=== PATIENT | female | born 1940 | race African-American/Black ===

== ENCOUNTER → 2018-03-09 | Outpatient (CLI) | payer OTHER ==
[~2018-03-09] VITALS: Ht 160 cm; Wt 135.9 kg
[~2018-03-09] MED LIST: ALLEGRA180 MG PO; ALLOPURINOL 10100 M3 PO; ALPHAGAN P10 ML OP; CLONIDINE0.1; DIOVAN HCT 3201 EAC1 PO; ENABLEX15 MG PO; GELNIQUE30 GM TD; HYDROCODON-ACE1 EAC5 PO; LASIX 40 MG TAB40 M1 PO; LIDODERM 5%1 PATCH TOP; LUMIGAN2.5 M1 OP; MECLIZINE 25 MG25 M1 PO; MOBIC15 MG PO; MUCINEX600 MG PO; NEXIUM40 MG PO; TEGRETOL XR100 MG PO; TOPAMAX50 MG PO; TRUSOPT OCUMETE10 M1 OP; ZOFRAN4 MG PO; ZYRTEC10 MG PO
--- NOTE | ~2018-03-09 | HPC ---
[address] [address] PAIN MANAGEMENT CONSULTATION Name: CHRIS THAKUR Room #: REG [facility].#: [id number] Admission: 03/09/18 Attend Phys: Jay Jay Biswas DO Discharge: Date of : 41 Report #: [id number] THIS REPORT FOR: //name// CC: Jeanine Melchor DATE OF SERVICE: 03/09/2018 REFERRING PHYSICIAN: Jeanine Logan DO CHIEF COMPLAINT: Neck pain. HISTORY OF PRESENT ILLNESS: As you know, the patient is a 77-year-old female who has a total of 2-day neck pain that started without inciting injury or trauma. Apparently, the patient received epidural injections in the past with Dr. Trung Biswas, but has been lost to followup visit. Since her visit of 04/06/2014, she comes to us without any imaging studies. There has been no new injury, no new trauma. She had previous cervical epidural injections with improvement, returning, requesting an epidural injection. The patient described today pain is continuous, constant, momentary. She describes pain as burning and throbbing, places pain score 10/10, daily average at 10/10, worst pain has been is 10/10. The patient states that any activity exacerbates symptoms, nothing appears to improve pain. She has had pain for a total of 48 hours. She has tried no physical therapy. She has done no conservative treatments. PAST MEDICAL HISTORY: 1. Hypertension. 2. Chronic colon problems. 3. Degenerative joint disease. 4. Osteoarthritis. 5. Gout. PAST SURGICAL HISTORY: 1. Eye surgery. 2. Hysterectomy. 3. Appendectomy. SOCIAL HISTORY: The patient denies tobacco, alcohol, IV or illicit drug use. She retired in 1995. She is unaccompanied. She is not receiving workmen's compensation nor is she trying to obtain disability benefits. REVIEW OF SYSTEMS: Positive for fatigue, weakness, headaches, wearing corrective eyewear, blurred vision, sore throat with voice changes, chest pain, [facility] [address] [place] [address] PAIN MANAGEMENT CONSULTATION Name: CHRIS THAKUR Juan Daniel Room #: REG [facility].#: [id number] Admission: 03/09/18 Attend Phys: Jay Jay Biswas DO Discharge: Date of : 41 Report #: [id number] shortness of breath with walking or lying flat, bowel movement changes, nausea, vomiting, constipation, rectal bleeding, abdominal pain, nocturia, incontinence and dribbling to urine, depression, neck pain, cold intolerance. All other review of systems negative per 12-point review of systems other than those listed in history of present illness. Pain impact score 55/70, indicating severe interference of daily activities secondary to pain. ALLERGIES: No reported drug allergies. CURRENT MEDICATIONS: Guaifenesin 600 mg every 12 hours, Zyrtec 10 mg once a day, Alphagan one drop each eye per day, Trusopt 1 drop each eye per day, Lumigan 1 drop each eye per day, Enablex 15 mg once a day, clonidine 0.1 mg twice a day, hydrocodone/acetaminophen 10/325 one tab to two tabs every 6 hours p.r.n. for pain, allopurinol 100 mg twice a day, meloxicam 15 mg once a day, topiramate 50 mg twice a day, ondansetron 4 mg once a day, Nexium 40 mg once a day, Diovan 320/25 once a day. IMAGING: No imaging available. PQRS: The patient has osteoarthritis of the bilateral knees and hips as well as low back. No rheumatoid arthritis. Pain intensity is 10/10. She is a fall risk, but has not had fallen in last 3 months. She is using a wheelchair for ambulation. She is not on blood thinners. She is treated for hypertension. She is on chronic opioids. She has low risk of opioid abuse. FUNCTIONAL ASSESSMENT: 55/70. PHYSICAL EXAMINATION: VITAL SIGNS: Blood pressure 149/103, pulse is 89, respiratory rate 18 and unlabored. The patient is 100% on room air. Height 5 feet 3 inches tall, weight 299 pounds, BMI calculated 53.1. GENERAL: Well-developed, well-nourished, well-hydrated, class 3, morbidly obese 77-year-old female, appears her stated age, pain is rated at 10/10. HEENT: Normocephalic, atraumatic. Pupils equal, round, reactive to light. Extraocular muscles are intact. Speech fluent. LUNGS: Clear; no wheeze, rhonchi or rales. CARDIOVASCULAR: Regular. No appreciable gallop, no rub. Difficult to auscultate heart sounds. ABDOMEN: Bowel sounds are present. Large pannus noted. EXTREMITIES: Show no clubbing, no cyanosis. There is 1-2+ nonpitting lower extremity edema. MUSCULOSKELETAL: Upper extremity strength appears symmetrical 5/5. Deconditioning noted bilaterally. Intact to light touch from C5-T1 dermatomes. Cervical provocation testing is met with increasing pain with rotation, lateral [facility] [address] [place] [address] PAIN MANAGEMENT CONSULTATION Name: CHRIS THAKUR Room #: [facility]#: [id number] Admission: 03/09/18 Attend Phys: Jay Jay Biswas DO Discharge: Date of : 41 Report #: [id number] flexion to the left. Spurling's test mildly positive left. ASSESSMENT: 1. Cervical radiculopathy. 2. Cervical spondylosis with radiculopathy. 3. Severe morbid obesity. 4. Uncontrolled hypertension. 5. Opioid dependency. PLAN: 1. The patient has been referred back to our clinic for 48-hour time-frame of neck pain, left upper extremity symptoms. The patient comes to us today, reporting pain score 10/10. She states she has had no injury, no trauma or any incident that may have led to pain development. She states she was in her normal state of health when the pain intensified. She has been referred back to our clinic to try cervical epidural injection. We have advised the patient of the risks and the benefits of this procedure. These risks include but not necessarily limited to bleeding, bruising, infection, worsening pain, no relief of pain, also risk of temporary or permanent muscle weakness, temporary or permanent nerve damage, possible paralysis and . The patient states she understood and wished to proceed. 2. The patient's blood pressure noted to be today at 149/103, the patient needs to return to her PCP immediately for adjustments in medication. This is not related to her 10/10 pain as her heart rate remains relatively stable, indicating this is not an acute pain-driven pressure issue. Adjustments need to be made in her medication. I will defer to the primary team for these adjustments. 3. The patient can return to our clinic on an as-needed basis. Recommend strongly the patient undergo imaging study in the form of MRI for further evaluation, assuming this injection is necessary again in the future. Further evaluation with imaging study will help us determine whether or not epidural injection should be continued or surgical options should be suggested. Again, we will defer to the primary team for further imaging if cervical epidural injections are continued to be required or pathology remains present. 4. The patient to return to our clinic on an as-needed basis for possible next in the series of epidural injections. PROCEDURE NOTE DESCRIPTION OF PROCEDURE: C7-T1 cervical epidural steroid injection under fluoroscopic guidance. This is the first procedure of the first series that the patient is undergoing. After obtaining written consent, the patient was taken back to the fluoroscopy suite and placed in a prone positon with separate [place] [address] PAIN MANAGEMENT CONSULTATION Name: CHRIS THAKUR Room #: REG [facility]#: [id number] Admission: 03/09/18 Attend Phys: Jay Jay Biswas DO Discharge: Date of : 41 Report #: [id number] forehead to decrease cervical lordosis. The skin overlying the cervical area was prepped and draped in an aseptic fashion. The C7-T1 vertebral interspace was identified by AP fluoroscopy. The skin and subcutaneous tissue overlying the target site of injection was anesthetized using 3 mL of 1% lidocaine. A 20 gauge, 4-1/2 inch Tuohy needle was advanced under fluoroscopic guidance toward the epidural space using a midline approach. The epidural space was identified using a loss of resistance to air technique. After negative aspiration for heme or cerebrospinal fluid, a total of 1 mL of Omnipaque was injected. A cervical epidurogram was confirmed using AP and oblique fluoroscopy. After negative aspiration for heme or cerebrospinal fluid, 5 mL of a solution containing 2 mL of 40 mg per mL, 80 mg of total triamcinolone, 3 mL of lidocaine 1% was injected in increments. Contrast spread was noted from posterior epidural space. The needle was then retracted approximately correction and the needle track was flushed with 1% lidocaine. There were no apparent new sensory deficits in the upper extremities present following the procedure. A sterile bandage was placed over the injection site. The heart rate, pulse oximetry and blood pressure were continuously monitored after the procedure. There were no apparent complications. The patient tolerated the procedure well and was carefully escorted in the recovery room in stable condition. After meeting discharge criteria, the patient was discharged home. By: [id number] Jay Jay Biswas DO /nt
[2018-03-09 08:59] VITALS: BP 149/103
== END | disposition home or self-care (01) ==
LOC: PAIN 07:46
DX: M47.22 Other spondylosis with radiculopathy, cervical region (principal); I10 Essential (primary) hypertension; M10.9 Gout, unspecified; M16.0 Bilateral primary osteoarthritis of hip; M17.0 Bilateral primary osteoarthritis of knee; E66.09 Other obesity due to excess calories; F11.20 Opioid dependence, uncomplicated; Z79.899 Other long term (current) drug therapy; Z90.710 Acquired absence of both cervix and uterus; Z87.19 Personal history of other diseases of the digestive system; Z98.890 Other specified postprocedural states; Z68.43 Body mass index [BMI] 50.0-59.9, adult

== ENCOUNTER → 2019-07-05 | Outpatient (CLI) | payer OTHER ==
[~2019-07-05] MED LIST changes: +ALLOPURINOL 10100 M2 PO; +AVALIDE 300-121 EACH PO; +DICYCLOMINE HCL20 MG PO; +OXYBUTYNIN 5 MG5 M2 PO; +TOPROL XL25 MG PO
[2019-07-05 09:36] VITALS: BP 156/99
--- NOTE | 2019-07-05 09:58 | NUR ---
Pain Clinic Assessment: 1. History of Osteoarthritis: NECK KNEES History of Rheumatoid Arthritis: Not Applicable 2. Height: 5 ft. 3 in. 160.0 cm. Weight: lb. oz. kg. Patient's BMI: 3. Vital Signs: BP: 156/99 Pulse: 92 Resp: 18 Temp: 02 Sat: 97 ECG Mon: 4. Pain Intensity: 7 5. Fall Risk: Dizziness: N Needs help standing or walking: Y Fallen in the last 3 months: N Fall risk comments: 6. Patient on Blood Thinner: None 7. History of Hypertension: Y 8. Opioid Therapy greater than 6 weeks: N Opiate Contract Signed: 9. Risk Assessment Tool Provided: LOW RISK 0/3 10. Functional Assessment Tool: 11. Recreational Drug Use: Never Drug Type: Tobacco Use: Never Smoker Tobacco Type: Amount or Packs/day: How Many Years: Alcohol Use: No Frequency: Quant:
--- NOTE | 2019-07-11 13:05 | HPC ---
[facility] [address] [place] [address] PAIN MANAGEMENT CONSULTATION Name: CHRIS THAKUR Room #: REG [facility]#: [id number] Admission: 07/05/19 Attend Phys: Jay Jay Biswas DO Discharge: Date of : 41 Report #: [id number] THIS REPORT FOR: //name// CC: Jeanine Orourke MD DATE OF SERVICE: 07/05/2019 REFERRING PHYSICIAN: Jeanine Logan MD CHIEF COMPLAINT: Neck pain. HISTORY OF PRESENT ILLNESS: As you know, the patient is a morbidly obese 78-year-old female who returns today in followup visit to undergo next in the series of cervical epidural injections under fluoroscopic guidance. The patient states she received excellent benefit with previous cervical epidural injection reporting 95% improvement in overall pain, lasting for nearly 6 months. Unfortunately, her symptoms have begun to return without inciting injury or trauma. She returns today in followup visit to undergo next in the series of cervical epidural injections to address cervical radicular symptoms. ALLERGIES: No reported drug allergies. CURRENT MEDICATIONS: Valsartan/hydrochlorothiazide, dicyclomine, metoprolol, allopurinol, oxybutynin, guaifenesin, sertraline, Alphagan, Trusopt, Bimatoprost, hydrocodone, allopurinol, meloxicam, topiramate and omeprazole. SOCIAL HISTORY: The patient denies tobacco, alcohol, IV or illicit drug use. She is retired since 1995. Accompanied by a friend who is present in room today. IMAGING: No new imaging available. PQRS: The patient has known arthritic changes of the bilateral knees, bilateral hips and lumbar spine. No rheumatoid arthritis, placing pain intensity today 7/10. She is a fall risk, but has not had a fall in the last 3 months. She is utilizing a wheelchair for mobilization. She is not on blood thinners, but is treated for hypertension. She is on chronic opioids, has a low opioid addiction potential. Pain impact score is 41/70, indicating [id number] interference of daily activities secondary to pain. PHYSICAL EXAMINATION: VITAL SIGNS: Blood pressure 156/99, pulse 92, respiratory rate 18 and unlabored. The patient is 97% on room air, current pain score is 7/10. [address] [address] PAIN MANAGEMENT CONSULTATION Name: CHRIS THAKUR Room #: REG [facility]#: [id number] Admission: 07/05/19 Attend Phys: Jay Jay Biswas DO Discharge: Date of : 41 Report #: [id number] HEENT: Normocephalic, atraumatic. Pupils equal, round, reactive to light. Extraocular muscles are intact. Sclerae nonicteric without injection. NEUROLOGIC: Speech fluent. The patient deemed a fair historian. EXTREMITIES: Show no clubbing, no cyanosis, and no edema. MUSCULOSKELETAL: Upper extremity strength is symmetrical 5/5. Deconditioning noted bilaterally. She is intact to light touch from C5 through T1 dermatomes. Spurling's test is equivocal. Cervical provocation testing is met with increasing axial cervical spine pain, no radiation of symptoms. ASSESSMENT: 1. Symptomatic cervical radiculopathy. 2. Cervical spondylosis with radiculopathy. 3. Severe morbid obesity. 4. Uncontrolled hypertension. 5. Chronic intractable pain. PLAN: 1. The patient returns today in followup visit indicating a pain level of 7/10. She received excellent benefit with previous cervical epidural injection reporting 95% improvement in overall pain lasting for 6 months. Unfortunately, her symptoms have begun to return. She denies injury or trauma, may have led to symptom reoccurrence. She returns to undergo next in the series of cervical epidural injections under fluoroscopic guidance. The patient has been advised risks and benefits of a cervical epidural injection. These risks include but are not necessarily limited to bleeding, bruising, infection, worsening of pain, no relief of pain, temporary or permanent muscle weakness, temporary or permanent nerve damage, possible paralysis, post-dural puncture headache and . The patient states understood and wished to proceed. 2. No medication changes made at today's visit. The patient will continue current medical therapy as prescribed. 3. We will see the patient back in followup visit on an as needed basis for possible next in a series of cervical epidural injections. PROCEDURE NOTE DESCRIPTION OF PROCEDURE: C7-T1 cervical epidural steroid injection under fluoroscopic guidance. This is the second procedure of the first series that the patient is undergoing. After obtaining written consent, the patient was taken back to the fluoroscopy suite and placed in a prone position with separate pillows under chest and forehead to decrease cervical lordosis. The skin overlying the cervical area was prepped and draped in an aseptic fashion. The C7-T1 vertebral interspace [address] [address] PAIN MANAGEMENT CONSULTATION Name: CHRIS THAKUR Room #: [facility]#: [id number] Admission: 07/05/19 Attend Phys: Jay Jay Biswas DO Discharge: Date of : 41 Report #: [id number] was identified by AP fluoroscopy. The skin and subcutaneous tissue overlying the target site of injection was anesthetized using 3 mL of 1% lidocaine. A 20-gauge 3-1/2 inch Tuohy needle was advanced under fluoroscopic guidance toward the epidural space using a midline approach. The epidural space was identified using a loss of resistance to air technique. After negative aspiration for heme or cerebrospinal fluid, a total of 1 mL of Omnipaque was injected. A cervical epidurogram was confirmed using AP and oblique fluoroscopy. After negative aspiration for heme or cerebrospinal fluid, 5 mL of solution containing 2 mL 40 mg per mL, 80 mg total triamcinolone along with 3 mL lidocaine 1% was injected in increments. Contrast spread was noted from posterior epidural space. The needle was then retracted approximately [facility] and the needle track was flushed with 1 mL of 1% lidocaine. There were no apparent new sensory deficits in the upper extremities present following the procedure. A sterile bandage was placed over the injection site. The heart rate, pulse oximetry and blood pressure were continuously monitored after the procedure. There were no apparent complications. The patient tolerated the procedure well and was carefully escorted in the recovery room in stable condition. After meeting discharge criteria, the patient was discharged home. <ELECTRONICALLY SIGNED> By: Jay Jay Biswas DO 07/11/19 1305 [id number] Jay Jay Biswas DO /nt
== END | disposition home or self-care (01) ==
LOC: PAIN 06-13 10:30
DX: M54.2 Cervicalgia (principal); M47.22 Other spondylosis with radiculopathy, cervical region; G89.29 Other chronic pain; I10 Essential (primary) hypertension; E66.01 Morbid (severe) obesity due to excess calories; Z98.890 Other specified postprocedural states; Z79.899 Other long term (current) drug therapy; Z79.891 Long term (current) use of opiate analgesic

== ENCOUNTER → 2019-10-04 | Outpatient (CLI) | payer OTHER ==
[~2019-10-04] VITALS: Ht 160 cm; Wt 130.2 kg
[2019-10-04 13:39] VITALS: BP 125/89
--- NOTE | 2019-10-04 13:58 | NUR ---
Pain Clinic Assessment: 1. History of Osteoarthritis: NECK KNEES History of Rheumatoid Arthritis: Not Applicable 2. Height: 5 ft. 3 in. 160.0 cm. Weight: 287.0 lb. oz. 130.183 kg. Patient's BMI: 50.9 3. Vital Signs: BP: 125/89 Pulse: 88 Resp: 16 Temp: 02 Sat: 95 ECG Mon: 4. Pain Intensity: 9 5. Fall Risk: Dizziness: N Needs help standing or walking: Y Fallen in the last 3 months: N Fall risk comments: 6. Patient on Blood Thinner: None 7. History of Hypertension: Y 8. Opioid Therapy greater than 6 weeks: N Opiate Contract Signed: 9. Risk Assessment Tool Provided: LOW RISK 0/3 10. Functional Assessment Tool: 11. Recreational Drug Use: Never Drug Type: Tobacco Use: Never Smoker Tobacco Type: Amount or Packs/day: How Many Years: Alcohol Use: No Frequency: Quant:
--- NOTE | 2019-10-06 07:46 | HPC ---
[address] [address] PAIN MANAGEMENT CONSULTATION Name: CHRIS THAKUR Room #: REG [facility]#: [id number] Admission: 10/04/19 Attend Phys: Jay Jay Biswas DO Discharge: Date of : 41 Report #: [id number] THIS REPORT FOR: cc: Renzo Dugan MD, Steven A. MD Johnson, James E. DO ~ THIS REPORT FOR: //name// CC: Jay Jay Dugan MD DATE OF SERVICE: 10/04/2019 REFERRING PHYSICIAN: Renzo Dugan MD CHIEF COMPLAINT: Neck pain. HISTORY OF PRESENT ILLNESS: As you know, the patient is a morbidly obese 79-year-old female who returns today in followup visit requesting to undergo next in the series of cervical epidural injections under fluoroscopic guidance. Previous cervical epidural injection gave the patient a relief of symptoms of greater than 70%, lasting for almost 2 months. Unfortunately, her symptoms have begun to return. She denies injury or trauma. She returns today to undergo next in the series of cervical epidural injections to address her chronic cervicalgia and cervical radicular pain. ALLERGIES: No reported drug allergies. CURRENT MEDICATIONS: See chart. SOCIAL HISTORY: The patient denies tobacco, alcohol, IV or illicit drug use. She is retired in 1995, accompanied by a friend present in room today. IMAGING: No new imaging available. PQRS: The patient has known arthritic changes of bilateral knees, bilateral hips and lumbar spine as well as cervical spine. No rheumatoid arthritis. She is placing pain intensity at 9/10. She is a fall risk, but has not had a fall in the last 3 months. She does use ambulatory devices. She is not on blood thinners, but is treated for hypertension. She is not on chronic opioids, but has a low opiate addiction potential based on our testing protocol. Pain impact score 41/70, moderate interference of daily activities secondary to pain. PHYSICAL EXAMINATION: VITAL SIGNS: Blood pressure 125/89, pulse 88, respiratory rate 16, and [facility] [address] [place] [address] PAIN MANAGEMENT CONSULTATION Name: CHRIS THAKUR Room #: [facility]#: [id number] Admission: 10/04/19 Attend Phys: Jay Jay Biswas DO Discharge: Date of : 41 Report #: [id number] unlabored. The patient is 95% on room air. Height 5 feet 3 inches tall, weight 287 pounds, BMI calculated 50.9. GENERAL: Well-developed, well-nourished, well-hydrated, class 3, morbidly obese, 79-year-old female, appearing stated age, pain is rated today at approximately 9/10. HEENT: Normocephalic, atraumatic. Pupils are equal, round, reactive to light. Extraocular muscles are intact. NEUROLOGIC: Speech fluent. The patient deemed a fair historian. EXTREMITIES: Show no clubbing, no cyanosis. There is noted 1+ nonpitting lower extremity edema bilaterally. MUSCULOSKELETAL: Upper extremity strength remains symmetrical again today 5/5. Deconditioning noted bilaterally in the upper extremities. She remains intact to light touch, again from C5-T1 dermatomes. Spurling's test remains equivocal. Cervical provocation testing is met with increased pain with rotation, lateral, flexion, and extension. There is palpatory tenderness over the paraspinal musculature of the cervical spine. No spinous process tenderness. Deep tendon reflexes in the upper extremities are diminished, but symmetrical. ASSESSMENT: 1. Symptomatic cervical radiculopathy. 2. Cervical spondylosis with radiculopathy. 3. Class 3 severe morbid obesity. 4. Chronic intractable pain. PLAN: 1. The patient returns today in followup visit requesting to undergo a cervical epidural injection under fluoroscopic guidance. She reported excellent benefit with previous cervical epidural injection lasting for nearly 2 months with a 70% improvement in her overall symptoms. She returns today, denying any new injury or trauma that may have led to symptom reoccurrence. She has requested and we will perform the next in the series of cervical epidural injections in hopes of building on success of previous intervention. She has been advised risks and benefits of the procedure, states understood, and wished to proceed. 2. No medication changes made at today's visit. The patient will continue current medical therapy as prior prescribed. 3. We will see the patient back in followup visit on an as needed basis for possible next in the series of cervical epidural injections. PROCEDURE NOTE DESCRIPTION OF PROCEDURE: C7-T1 cervical epidural steroid injection under fluoroscopic guidance. This is the third procedure of the first series that the patient is undergoing. After obtaining written consent, the patient was taken back to the fluoroscopy [address] [address] PAIN MANAGEMENT CONSULTATION Name: CHRIS THAKUR Room #: [facility]#: [id number] Admission: 10/04/19 Attend Phys: Jay Jay Biswas DO Discharge: Date of : 41 Report #: [id number] suite and placed prone. The skin overlying the cervical area was prepped and draped in an aseptic fashion. The C7-T1 vertebral interspace was identified by AP fluoroscopy. The skin and subcutaneous tissue overlying the target site of injection was anesthetized using 3 mL of 1% lidocaine. A 20-gauge 4-1/2 inch Tuohy needle was advanced under fluoroscopic guidance toward the epidural space using a midline approach. The epidural space was identified using a loss of resistance to air technique. After negative aspiration for heme or cerebrospinal fluid, a total of 1 mL of Omnipaque was injected. A cervical epidurogram was confirmed using AP and oblique fluoroscopy. After negative aspiration for heme or cerebrospinal fluid, 5 mL of a solution containing 2 mL 40 mg per mL, 80 mg of total triamcinolone along with 3 mL of lidocaine 1% was injected in increments. Contrast spread was noted from posterior epidural space. The needle was then retracted approximately [facility] and the needle track was flushed with 1 mL of 1% lidocaine. There were no apparent new sensory deficits in the upper extremities present following the procedure. A sterile bandage was placed over the injection site. The heart rate, pulse oximetry and blood pressure were continuously monitored after the procedure. There were no apparent complications. The patient tolerated the procedure well and was carefully escorted in the recovery room in stable condition. After meeting discharge criteria, the patient was discharged home. <ELECTRONICALLY SIGNED> By: Jay Jay Biswas DO 10/06/19 0746 [id number] Jay Jay Biswas DO /nt
== END | disposition home or self-care (01) ==
LOC: PAIN 06:52
DX: M47.22 Other spondylosis with radiculopathy, cervical region (principal); G89.29 Other chronic pain; M19.90 Unspecified osteoarthritis, unspecified site; I10 Essential (primary) hypertension; E66.01 Morbid (severe) obesity due to excess calories; Z98.890 Other specified postprocedural states; Z68.43 Body mass index [BMI] 50.0-59.9, adult; Z79.899 Other long term (current) drug therapy

== ENCOUNTER → 2020-01-16 | Outpatient (CLI) | payer OTHER ==
[~2020-01-16] VITALS: Ht 160 cm; Wt 137.2 kg
[2020-01-16 12:22] VITALS: BP 168/78
--- NOTE | 2020-01-16 12:37 | NUR ---
Pain Clinic Assessment: 1. History of Osteoarthritis: NECK KNEES History of Rheumatoid Arthritis: Not Applicable 2. Height: 5 ft. 3 in. 160.0 cm. Weight: 302.4 lb. oz. 137.168 kg. Patient's BMI: 53.6 3. Vital Signs: BP: 168/78 Pulse: 90 Resp: 20 Temp: 02 Sat: 97 ECG Mon: 4. Pain Intensity: 6 5. Fall Risk: Dizziness: N Needs help standing or walking: Y Fallen in the last 3 months: N Fall risk comments: 6. Patient on Blood Thinner: None 7. History of Hypertension: Y 8. Opioid Therapy greater than 6 weeks: N Opiate Contract Signed: 9. Risk Assessment Tool Provided: LOW RISK 0/2 10. Functional Assessment Tool: 11. Recreational Drug Use: Never Drug Type: Tobacco Use: Never Smoker Tobacco Type: Amount or Packs/day: How Many Years: Alcohol Use: No Frequency: Quant:
--- NOTE | 2020-01-17 15:41 | HPC ---
[facility] [place] [address] PAIN MANAGEMENT CONSULTATION Name: CHRIS THAKUR Room #: REG [facility]#: [id number] Admission: 01/16/20 Attend Phys: Jay Jay Biswas DO Discharge: Date of : 42 Report #: [id number] THIS REPORT FOR: cc: Renzo Dugan MD, Steven A. MD Johnson, James E. DO ~ DATE OF SERVICE: 01/16/2020 REFERRING PHYSICIAN: Jeanine Logan DO CHIEF COMPLAINT: Neck pain. HISTORY OF PRESENT ILLNESS: As you know, the patient is a morbidly obese 79-year-old female who returns today in followup visit with continued neck pain. The patient has an unusual stance. She uses a roller walker and bends at approximately 90-degree angle at the lumbar spine. This leads to the necessity of hyperextending her cervical spine to be able to see forward. This is leading to ongoing pain issues. She returns today in followup visit stating no new injury or trauma, but recurrence of her chronic cervicalgia and cervical radicular symptoms. She returns requesting an epidural injection under fluoroscopic guidance. She reports with the previous epidural injection, 75% improvement for 2-1/2 months. ALLERGIES: No reported drug allergies. CURRENT MEDICATIONS: See chart. SOCIAL HISTORY: The patient denies tobacco, alcohol, IV or illicit drug use. She retired in 1995. She is unaccompanied today. IMAGING: No new imaging available. PQRS: The patient has known arthritic changes of the bilateral knees, bilateral hips, lumbar spine and cervical spine. No rheumatoid arthritis is reported. She is a fall risk, but has not had a fall in last 3 months. She is utilizing a roller walker for ambulation. She is not on blood thinners, but is treated for hypertension. She is not on chronic opioids, but does have a low opioid addiction potential. Pain impact score is 22/70 indicating [id number] interference of daily activities secondary to pain. PHYSICAL EXAMINATION: VITAL SIGNS: Blood pressure 168/78, pulse is 90, respiratory rate 20 and unlabored. The patient is 97% on room air. Height 5 feet 3 inches tall, weight 302.4 pounds, BMI calculated at 53.6. GENERAL: Well-developed, well-nourished, well-hydrated, [place] [address] PAIN MANAGEMENT CONSULTATION Name: CHRIS THAKUR Room #: REG [facility]#: [id number] Admission: 01/16/20 Attend Phys: Jay Jay Biswas DO Discharge: Date of : 41 Report #: [id number] 79-year-old female appearing stated age. She is placing current pain score at 6/10. HEENT: Normocephalic, atraumatic. Pupils are equal, round, and reactive. EXTREMITIES: Show no clubbing, no cyanosis. There is 1+ nonpitting lower extremity edema again noted today. MUSCULOSKELETAL: Upper extremity strength is symmetrical 5/5. Deconditioning noted bilaterally. Muscle bulk and tone equal and symmetrical in upper extremities, intact to light touch from C5-T1 dermatomes. Spurling's test remains equivocal. There is noted pain with all motions of the cervical provocation including extension, rotation and extension. ASSESSMENT: 1. Cervical radiculopathy. 2. Cervical spondylosis with radicular symptoms. 3. Class 3 severe morbid obesity. 4. Chronic intractable pain. PLAN: 1. The patient returns today in followup visit where we have discussed ongoing neck pain. The patient reports recurrence of symptoms began about 2 weeks ago and has progressively worsened. I do feel that her stance is a contributor to the patient's ongoing neck pain. She stands in a forward flexed position of the lumbar spine with a 90-degree angle. This then causes hyperextension of the cervical spine to be able to keep her eyes level on horizon in front of her. This is leading to exacerbation of her chronic neck symptoms. We have discussed having the patient undergo physical therapy and strengthening of the core muscles of the back, allowing her to stand more erect. She has been resistant to this in the past. We recommend that she consider this as an option. She will consider this discussion today and contact us if she wishes to move forward with more strengthening options. 2. The patient has consented to undergo cervical epidural injection under fluoroscopic guidance to address cervical radicular pain symptoms. She has been advised the risks and benefits of a cervical epidural injection. These risks include but are not necessarily limited to bleeding, bruising, infection, worsening pain, no relief of pain, also risk of temporary or permanent muscle weakness, temporary or permanent nerve damage, possible paralysis and . The patient states understood and wished to proceed. 3. No medication changes made at today's visit. The patient will continue current medical therapy as previously prescribed. 4. We will see the patient back in followup visit on an as needed basis, possible next in the series of cervical epidural injections. PROCEDURE NOTE DESCRIPTION OF PROCEDURE: C7-T1 cervical epidural steroid injection under fluoroscopic guidance. [address] [address] PAIN MANAGEMENT CONSULTATION Name: CHRIS THAKUR Room #: [facility]#: [id number] Admission: 01/16/20 Attend Phys: Jay Jay Biswas DO Discharge: Date of : 41 Report #: [id number] This is the first procedure of the second series that the patient is undergoing. After obtaining written consent, the patient was taken back to the fluoroscopy suite and placed in a prone position with separate pillows under chest and forehead to decrease cervical lordosis. The skin overlying the cervical area was prepped and draped in an aseptic fashion. The C7-T1 vertebral interspace was identified by AP fluoroscopy. The skin and subcutaneous tissue overlying the target site of injection was anesthetized using 3 mL of 1% lidocaine. A 20-gauge 3-1/2 inch Tuohy needle was advanced under fluoroscopic guidance toward the epidural space using a midline approach. The epidural space was identified using a loss of resistance to air technique. After negative aspiration for heme or cerebrospinal fluid, a total of 1 mL of Omnipaque was injected. A cervical epidurogram was confirmed using AP and oblique fluoroscopy. After negative aspiration for heme or cerebrospinal fluid, 5 mL of a solution containing 2 mL 40 mg per mL, 80 mg total triamcinolone along with 3 mL of lidocaine 1% injected in increments. Contrast spread was noted from posterior epidural space. The needle was then retracted approximately assisted and the needle track was flushed with 1 mL of 1% lidocaine. There were no apparent new sensory deficits in the upper extremities present following the procedure. A sterile bandage was placed over the injection site. The heart rate, pulse oximetry and blood pressure were continuously monitored after the procedure. There were no apparent complications. The patient tolerated the procedure well and was carefully escorted in the recovery room in stable condition. After meeting discharge criteria, the patient was discharged home. <ELECTRONICALLY SIGNED> By: Jay Jay Biswas DO 01/17/20 1541 [id number] Jay Jay Biswas DO /nt
== END | disposition home or self-care (01) ==
LOC: PAIN 06:54
DX: M47.22 Other spondylosis with radiculopathy, cervical region (principal); G89.29 Other chronic pain; I10 Essential (primary) hypertension; M19.90 Unspecified osteoarthritis, unspecified site; Z98.890 Other specified postprocedural states; E66.01 Morbid (severe) obesity due to excess calories; Z79.899 Other long term (current) drug therapy; Z68.43 Body mass index [BMI] 50.0-59.9, adult

== ENCOUNTER → 2020-03-05 | Outpatient (CLI) | payer OTHER ==
[~2020-03-05] VITALS: Ht 160 cm; Wt 137.3 kg
[~2020-03-05] MED LIST changes: +NEURONTIN300 MG PO
[2020-03-05 14:25] VITALS: BP 142/94
--- NOTE | 2020-03-05 14:49 | NUR ---
Pain Clinic Assessment: 1. History of Osteoarthritis: NECK KNEES BACK History of Rheumatoid Arthritis: Not Applicable 2. Height: 5 ft. 3 in. 160.0 cm. Weight: 302.6 lb. oz. 137.259 kg. Patient's BMI: 53.6 3. Vital Signs: BP: 142/94 Pulse: 93 Resp: 22 Temp: 02 Sat: 97 ECG Mon: 4. Pain Intensity: 9 5. Fall Risk: Dizziness: N Needs help standing or walking: Y Fallen in the last 3 months: N Fall risk comments: 6. Patient on Blood Thinner: None 7. History of Hypertension: Y 8. Opioid Therapy greater than 6 weeks: N Opiate Contract Signed: 9. Risk Assessment Tool Provided: LOW RISK 0/2 10. Functional Assessment Tool: 11. Recreational Drug Use: Never Drug Type: Tobacco Use: Never Smoker Tobacco Type: Amount or Packs/day: How Many Years: Alcohol Use: No Frequency: Quant:
--- NOTE | 2020-03-12 14:07 | HPC ---
[facility] [address] [place] [address] PAIN MANAGEMENT CONSULTATION Name: CHRIS THAKUR Room #: REG [facility].#: [id number] Admission: 03/05/20 Attend Phys: Jay Jay Biswas DO Discharge: Date of : 41 Report #: [id number] THIS REPORT FOR: cc: Renzo Dugan MD, Steven A. MD Johnson, James E. DO ~ DATE OF SERVICE: 03/05/2020 REFERRING PHYSICIAN: Renzo Dugan MD CHIEF COMPLAINT: Neck pain, bilateral upper extremity pain, bilateral arm pain. HISTORY OF PRESENT ILLNESS: As you know, the patient is a morbidly obese 79-year-old female who returns today in followup visit with continued neck pain, bilateral upper back pain, bilateral upper extremity pain with paresthesias. She returns requesting next in the series of cervical epidural injections under fluoroscopic guidance. As you are aware, the patient has a severely forward flexed positioning when she uses her roller walker leaving her in a situation where she has to hyperextend her neck to be able to see forward. Unfortunately, due to her body habitus and chronic low back pain issues she is unable to stand erect. She returns today in followup visit to address her recurrent cervical radicular symptoms. She reports previous epidural injection gave improvement in symptoms of 75% for almost 2 months. She returns today for next in the series of cervical epidural injections. She denies injury or trauma. ALLERGIES: No known drug allergies. CURRENT MEDICATIONS: See chart. SOCIAL HISTORY: The patient denies tobacco, alcohol, IV or illicit drug use. She retired in 1995. She is accompanied by a family friend present in the room today. IMAGING: No new imaging available. PQRS: The patient has known arthritic changes of bilateral shoulders, bilateral hips, lumbar spine and cervical spine. No rheumatoid arthritis. She is at a high fall risk, but has not had a fall in the last 3 months. She utilizes a roller walker for ambulation and balance. She is not on blood thinners, but is treated for hypertension. She is not on any opioid medications and has a reported low opioid addiction potential based on assessment tool. Pain impact is 22/70, [id number] interference of daily activities secondary to pain. PHYSICAL EXAMINATION: VITAL SIGNS: Blood pressure 142/94, pulse 93, respiratory rate 22 and [facility] [address] [place] [address] PAIN MANAGEMENT CONSULTATION Name: CHRIS THAKUR [id number] Admission: 03/05/20 Attend Phys: Jay Jay Biswas DO Discharge: Date of : 41 Report #: [id number] unlabored. The patient is 97% on room air. Height 5 feet 3 inches tall, weight 302.6 pounds, BMI calculated 53.6. GENERAL: Well-developed, well-nourished, well-hydrated, severely morbidly obese 79-year-old female appearing stated age, pain is rated today at around 9/10. HEENT: Normocephalic, atraumatic. Pupils are equal, round, and reactive. Speech fluent for the patient. EXTREMITIES: Show no clubbing, no cyanosis, nonpitting lower extremity edema noted bilaterally in lower extremities. MUSCULOSKELETAL: Upper extremity strength remains symmetrical 5/5. Deconditioning noted bilaterally when comparing left upper extremity to right upper extremity. Spurling's test is equivocal. Pain is elicited with motion in all planes including rotation, lateral flexion and extension. ASSESSMENT: 1. Cervical radiculopathy. 2. Cervical spondylosis with radiculopathy. 3. Class 3 morbid obesity. 4. Chronic intractable pain. 5. Chronic low back pain. PLAN: 1. The patient returns today in followup visit requesting to undergo cervical epidural injection under fluoroscopic guidance to address her cervical radicular symptoms. She reports excellent benefit with previous cervical epidural injection 75% improvement in overall pain lasting for nearly 2 months. She returns today in followup visit requesting next in the series of epidural injections to address cervical radiculopathy. The patient has been advised risks and benefits of the procedure, states understood and wished to proceed. 2. No medication changes made at today's visit. The patient will continue with current medical therapy as prior prescribed. 3. We will see the patient back in followup visit on an as needed basis for possible next in the series of cervical epidural injections. We are hopeful the patient will see good and prolonged benefit with today's procedure. PROCEDURE NOTE DESCRIPTION OF PROCEDURE: C7-T1 cervical epidural steroid injection under fluoroscopic guidance. This is the second procedure of the second series that the patient is undergoing. After obtaining written consent, the patient was taken back to the fluoroscopy suite and placed in a prone position with separate pillows under chest and forehead to decrease cervical lordosis. The skin overlying the cervical area was prepped and draped in an aseptic fashion. The C7-T1 vertebral interspace [address] [address] PAIN MANAGEMENT CONSULTATION Name: CHRIS THAKUR Room #: REG [facility]#: [id number] Admission: 03/05/20 Attend Phys: Jay Jay Biswas DO Discharge: Date of : 41 Report #: [id number] was identified by AP fluoroscopy. The skin and subcutaneous tissue overlying the target site of injection was anesthetized using 3 mL of 1% lidocaine. A 20-gauge 4-1/2 inch Tuohy needle was advanced under fluoroscopic guidance toward the epidural space using a midline approach. The epidural space was identified using a loss of resistance to air technique. After negative aspiration for heme or cerebrospinal fluid, a total of 1 mL of Omnipaque was injected. A cervical epidurogram was confirmed using AP and oblique fluoroscopy. After negative aspiration for heme or cerebrospinal fluid, 5 mL of a solution containing 2 mL 40 mg per mL, 80 mg total triamcinolone along with 3 mL lidocaine 1% was injected in increments. Contrast spread was noted from posterior epidural space. The needle was then retracted approximately chcf and the needle track was flushed with 1 mL of 1% lidocaine. There were no apparent new sensory deficits in the upper extremities present following the procedure. A sterile bandage was placed over the injection site. The heart rate, pulse oximetry and blood pressure were continuously monitored after the procedure. There were no apparent complications. The patient tolerated the procedure well and was carefully escorted in the recovery room in stable condition. After meeting discharge criteria, the patient was discharged home. <ELECTRONICALLY SIGNED> By: Jay Jay Biswas DO 03/12/20 1407 [id number] [id number] Jay Jay Biswas DO /nt
== END | disposition home or self-care (01) ==
LOC: PAIN 07:00
PROVIDERS: ATTEND Anesthesiology Pain Medicine
DX: M54.2 Cervicalgia (principal); M47.22 Other spondylosis with radiculopathy, cervical region; E66.01 Morbid (severe) obesity due to excess calories; G89.29 Other chronic pain; Z79.899 Other long term (current) drug therapy

== ENCOUNTER → 2020-04-03 | Outpatient (CLI) | payer OTHER ==
[~2020-04-03] VITALS: Ht 160 cm; Wt 131.5 kg
[~2020-04-03] MED LIST changes: +EXCEDRIN MIGRA1 EAC1 PO; +FLEXERIL PO
[2020-04-03 14:25] VITALS: BP 138/95
--- NOTE | 2020-04-03 14:44 | NUR ---
Pain Clinic Assessment: 1. History of Osteoarthritis: NECK KNEES BACK History of Rheumatoid Arthritis: Not Applicable 2. Height: 5 ft. 3 in. 160.0 cm. Weight: 289.8 lb. oz. 131.453 kg. Patient's BMI: 51.3 3. Vital Signs: BP: 138/95 Pulse: 129 Resp: 20 Temp: 02 Sat: 98 ECG Mon: 4. Pain Intensity: 9 5. Fall Risk: Dizziness: N Needs help standing or walking: Y Fallen in the last 3 months: N Fall risk comments: 6. Patient on Blood Thinner: None 7. History of Hypertension: Y 8. Opioid Therapy greater than 6 weeks: N Opiate Contract Signed: 9. Risk Assessment Tool Provided: LOW RISK 0/2 10. Functional Assessment Tool: 11. Recreational Drug Use: Never Drug Type: Tobacco Use: Never Smoker Tobacco Type: Amount or Packs/day: How Many Years: Alcohol Use: No Frequency: Quant:
--- NOTE | 2020-04-08 09:45 | HPC ---
[facility] [address] [place] [address] PAIN MANAGEMENT CONSULTATION Name: CHRIS THAKUR Room #: REG [facility]#: [id number] Admission: 04/03/20 Attend Phys: Jay Jay Biswas DO Discharge: Date of : 41 Report #: [id number] THIS REPORT FOR: cc: Renzo Dugan MD, Steven A. MD Johnson, James E. DO ~ DATE OF SERVICE: 04/03/2020 CHIEF COMPLAINT: Right low back pain. HISTORY OF PRESENT ILLNESS: As you know, the patient is a morbidly obese 79-year-old female who returns today in followup visit with acute onset of right low back pain. The patient states she was sitting at home when she began to experience "a catch in her back." She states the pain intensified over that day and has continued. She denies any specific injury or trauma. She is able to localize the pain directly over the lower facet joints at L4-L5 and L5-S1, but is experiencing mainly muscle spasming in the area. She discussed her case with a nurse practitioner from her insurance who came out to evaluate the patient on a yearly basis and indicated that she also had felt muscle spasming in the area and recommended treatment. She returns to discuss those options. ALLERGIES: No known drug allergies. CURRENT MEDICATIONS: See chart. SOCIAL HISTORY: The patient denies tobacco, alcohol, IV or illicit drug use. She retired in 1995. Unaccompanied today. IMAGING: No imaging available. PQRS: The patient has known arthritic changes of bilateral knees, bilateral hips, lumbar spine and cervical spine. No rheumatoid arthritis. She is a fall risk, but has not had a fall in last 3 months. She utilizes a roller walker for ambulation. She is not on blood thinners, but is treated for hypertension. She is not on chronic opioids and has a low opiate addiction potential. Based on our assessment tool, pain impact is 22/70, mild interference to moderate interference of daily activities secondary to pain. PHYSICAL EXAMINATION: VITAL SIGNS: Blood pressure 138/95, pulse is 129, respiratory rate 20 and unlabored. The patient is 98% on room air. Height 5 feet 3 inches tall, weight 289.8 pounds, BMI calculated 51.3. GENERAL: Well-developed, well-nourished, well-hydrated, severely morbidly obese 79-year-old female appearing stated age, pain is rated today 9/10. HEENT: Normocephalic, atraumatic. Pupils are round and reactive. Speech [address] [address] PAIN MANAGEMENT CONSULTATION Name: CHRIS THAKUR Room #: REG [facility]#: [id number] Admission: 04/03/20 Attend Phys: Jay Jay Biswas DO Discharge: Date of : 41 Report #: [id number] fluent. EXTREMITIES: Show no clubbing, no cyanosis, 1+ nonpitting lower extremity edema noted again today. MUSCULOSKELETAL: Palpatory tenderness is noted over the paraspinal musculature of lower lumbar spine on the right. Deep palpation over the lower facet joints is the area of discomfort today. There are 4 trigger points that are identified with deep palpation. There are no changes in skin color, texture over the area concerning of zoster lesions. Seated straight leg raising negative. Supine straight leg raising negative. Modified Gaenslen's positive for some axial low back pain. ASSESSMENT: 1. Lumbosacral spondylosis without radicular symptoms. 2. Facet arthropathy of the lumbar spine. 3. Myofascial pain. 4. Chronic intractable pain. PLAN: 1. The patient returns today in followup visit with acute onset of right low back symptoms she began to experience while seated talking with friends. She states that movement seems to exacerbate symptoms. She is able to localize the pain over what appears to be the facet joint of the lower lumbar spine. She is complaining of muscle spasming as the main source of symptoms present. I was able to elicit 4 trigger points in the area that radiated typical pain she has been experiencing. She also has facet arthropathy pain noted with provocation testing, which may be contributing to symptoms. We discussed with the patient the possibility of undergoing trigger point injections today. She was amenable to undergo the procedure. 2. The patient was advised risks and benefits of trigger point injections. These risks include but are not necessarily limited to bleeding, bruising, infection, worsening pain, no relief of pain, also risk of temporary or permanent muscle weakness, temporary or permanent nerve damage, possible pneumothorax and . The patient states understood and wished to proceed. 3. No medication changes made at today's visit. The patient will continue current medical therapy as previously prescribed. 4. We will see the patient back in followup visit on an as needed basis for possible next in a series of trigger point injections. We are pleased to see the patient has done well with cervical epidural injection, stating that her neck pain and upper extremity pain has resolved considerably and she is very pleased with that response. We are hopeful the patient will see good improvement with today's trigger points. PROCEDURE NOTE DESCRIPTION OF PROCEDURE: Trigger point injections. [address] [address] PAIN MANAGEMENT CONSULTATION Name: CHRIS THAKUR Room #: REG [facility]#: [id number] Admission: 04/03/20 Attend Phys: Jay Jay Biswas DO Discharge: Date of : 41 Report #: [id number] After obtaining written consent, the patient was placed in a seated position. By palpating using a single finger, 4 trigger points were identified that reproduced the patient's typical radiating pain pattern. Trigger points were located in the paraspinal musculature of the right lower lumbar spine. Each of the target sites of injections were cleansed using aseptic technique with chlorhexidine. A 25-gauge 1-1/2 inch needle was advanced towards each trigger point until the patient's typical radiating pain pattern was reproduced. After negative aspiration for heme, 1 mL of a solution containing 1 mL 40 mg per mL, 40 mg total triamcinolone and 5 mL of bupivacaine 0.5% was injected at each site in a fanned out distribution. The needles were removed and sterile bandages were placed over each of the injection sites. The patient was able to move all 4 extremities purposefully after the procedure. The patient tolerated procedure well, carefully escorted to recovery room in stable condition. No apparent complications. VAS before procedure was rated at 9/10, VAS 10 minutes after procedure 2/10. After meeting our discharge criteria, the patient discharged home. <ELECTRONICALLY SIGNED> By: Jay Jay Biswas DO 04/08/20 0945 [id number] Jay Jay Biswas, DO /nt
== END | disposition home or self-care (01) ==
LOC: PAIN 07:04
PROVIDERS: ATTEND Anesthesiology Pain Medicine
DX: M79.18 Myalgia, other site (principal); M47.817 Spondylosis without myelopathy or radiculopathy, lumbosacral region; M47.816 Spondylosis without myelopathy or radiculopathy, lumbar region; G89.29 Other chronic pain; I10 Essential (primary) hypertension; M19.90 Unspecified osteoarthritis, unspecified site; Z79.899 Other long term (current) drug therapy; Z98.890 Other specified postprocedural states

== ENCOUNTER → 2020-04-30 | Outpatient (CLI) | payer OTHER ==
[~2020-04-30] VITALS: Ht 160 cm; Wt 139.6 kg
[2020-04-30 09:51] VITALS: BP 135/102
--- NOTE | 2020-04-30 09:56 | NUR ---
Pain Clinic Assessment: 1. History of Osteoarthritis: NECK KNEES BACK History of Rheumatoid Arthritis: Not Applicable 2. Height: 5 ft. 3 in. 160.0 cm. Weight: 307.8 lb. oz. 139.618 kg. Patient's BMI: 54.5 3. Vital Signs: BP: 135/102 Pulse: 105 Resp: 20 Temp: 02 Sat: 97 ECG Mon: 4. Pain Intensity: 9 5. Fall Risk: Dizziness: N Needs help standing or walking: Y Fallen in the last 3 months: N Fall risk comments: 6. Patient on Blood Thinner: None 7. History of Hypertension: Y 8. Opioid Therapy greater than 6 weeks: N Opiate Contract Signed: 9. Risk Assessment Tool Provided: LOW RISK 0/2 10. Functional Assessment Tool: 11. Recreational Drug Use: Never Drug Type: Tobacco Use: Never Smoker Tobacco Type: Amount or Packs/day: How Many Years: Alcohol Use: No Frequency: Quant:
--- NOTE | 2020-05-07 12:51 | HPC ---
[facility] [address] [place] [address] PAIN MANAGEMENT CONSULTATION Name: CHRIS THAKUR Room #: REG [facility] Romel.#: [id number] Admission: 04/30/20 Attend Phys: Jay Jay Biswas DO Discharge: Date of : 41 Report #: [id number] THIS REPORT FOR: cc: Renzo Dugan MD, Steven A. MD Johnson, James E. DO ~ DATE OF SERVICE: 04/30/2020 CHIEF COMPLAINT: Right low back and buttock pain. HISTORY OF PRESENT ILLNESS: As you know, the patient is a class 3 morbidly obese, severely arthritic 79-year-old female who returns today in followup visit with continued low back pain and right buttock and posterolateral thigh pain. The patient was seen at our clinic 04/03/2020 where she was complaining of just a point specific back pain. She requested trigger points to be provided. They did not provide much in the way of improvement. She continues to experience pain in the low back radiating down the leg, which is more concerning for lumbar radiculopathy. The patient and I had discussed at the last visit that the symptoms that she was experiencing would appear to be more related to an underlying radicular component, but she felt her symptoms were myofascial in origin and requested the trigger point injections. As indicated above, there was no improvement in symptoms. She returns today in followup visit stating a pain of 9/10. She states that despite taking syob-sdq-nyzaiip medication and prescribed hydrocodone 6 times a day, she has not seen much in the way of improvement. She returns today to discuss options for treatment from an interventional standpoint. ALLERGIES: No known drug allergies. CURRENT MEDICATIONS: Cyclobenzaprine, Excedrin, gabapentin, Avalide, dicyclomine, metoprolol, allopurinol, oxybutynin, guaifenesin, cetirizine, Alphagan, bimatoprost, hydrocodone, meloxicam, topiramate, and omeprazole. SOCIAL HISTORY: The patient denies tobacco, alcohol, IV or illicit drug use. She retired in 1995. She is accompanied by a friend present in room today. IMAGING: No new imaging available. PQRS: The patient has known arthritic changes of bilateral knees, bilateral hips, lumbar spine, cervical spine. No rheumatoid arthritis. Pain is placed today at 9/10. She is a fall risk, but has not had a fall in last 3 months. She utilizes a roller walker, canes and intermittently wheelchair to ambulate. She is not on blood thinners, but is treated for hypertension. She is on chronic opioids and has a low opioid addiction potential based on our assessment tool. Pain impact today . [address] [address] PAIN MANAGEMENT CONSULTATION Name: CHRIS THAKUR Room #: REG [facility] Sandeep#: [id number] Admission: 04/30/20 Attend Phys: Jay Jay Biswas DO Discharge: Date of : 41 Report #: [id number] PHYSICAL EXAMINATION: VITAL SIGNS: Blood pressure 135/102, pulse is 105, respiratory rate 20 and unlabored. The patient is 97% on room air. Height 5 feet 3 inches tall, weight 307.8 pounds, BMI calculated 54.5. GENERAL: Well-developed, well-nourished, severely morbidly obese, class 3+ morbidly obese 79-year-old female, appears stated age, placing pain today 05/09. HEENT: Normocephalic, atraumatic. Pupils are round, and responsive. The patient is wearing a mask in compliance with COVID-19 restrictions. EXTREMITIES: Show no clubbing, no cyanosis. There is lower extremity nonpitting edema noted bilaterally. MUSCULOSKELETAL: The patient has a palpatory tenderness over the paraspinal musculature of lower lumbar spine. We were unable to elicit radicular symptoms. Seated straight leg raising or supine straight leg raising secondary to the patient's body habitus. We are only able to obtain a 45-degree angle in the seated position and approximately 50 degree angle in the supine straight leg position. Gait is antalgic favoring right lower extremity over left. Stance appears forward flexed. Muscle bulk and tone is equal and symmetrical in lower extremities. ASSESSMENT: 1. Suspected lumbar radiculopathy. 2. Lumbosacral spondylosis with radicular symptoms. 3. Severe facet arthropathy of the lumbar spine. 4. Chronic cervical radiculopathy. PLAN: 1. The patient has returned today in followup visit indicating no improvement with the trigger point injections provided at last visit. We have advised the patient at this time that her symptoms appear to be more related to lumbar radiculopathy, though the patient was insistent that her symptoms were located just in the lower lumbar region. We provided the patient trigger point injections with no benefit. She returns today with progressively worsening low back pain, right lower extremity symptoms consistent with lumbar radiculopathy. We discussed with the patient that treatment options would be as follows: We discussed physical therapy, stretching exercises, and bariatric intervention to address the patient's morbid obesity, thus reducing the forces of the weight upon her lumbar region. We discussed medication management with suggestions of altering treatment with increased neuropathic pain medications and a reduction in her opioid medication as opioids are ineffective for radicular symptoms. We discussed epidural injection in the lumbar spine to address her symptoms. We also discussed further imaging of the lumbar spine with a CT examination and referral for surgery, though given her body habitus, she is not an optimal candidate without significant weight loss. After reviewing the risks and benefits of all proposed treatment options, the patient chose at this point to [address] [address] PAIN MANAGEMENT CONSULTATION Name: CHRIS THAKUR Room #: REG [facility].#: [id number] Admission: 04/30/20 Attend Phys: Jay Jay Biswas DO Discharge: Date of : 41 Report #: [id number] consider a lumbar epidural injection, but not at this visit. 2. We made no changes in the patient's medication management at this time. We do recommend that if adjustments are to be made that there is a reduction in opioid medication as these are ineffective for lumbar radiculopathy and for cervical radiculopathy and a possible increase in neuropathic pain medication such as amitriptyline, nortriptyline, Cymbalta, Lyrica or gabapentin, all of which can be quite beneficial. We will defer to the primary team who is providing these medications to make any adjustments that they feel necessary. 3. We will make ourselves available to the patient if her symptoms continue to remain and her function continues to decrease, she can return for a lumbar epidural injection. She was advised that if she undergoes an injection either in the lumbar or cervical area, we are precluded from providing future injections until August as she will have completed 3 injections in the 6-month period. She is understanding of the limitations of these injections and will consider the injection if her symptoms continue and her function decreases further. We will see her back in followup visit on an as needed basis. <ELECTRONICALLY SIGNED> By: Jay Jay Biswas DO 05/07/20 1251 1221 1504 Jay Jay Biswas DO /nt
== END ==
LOC: PAIN 06:52
PROVIDERS: ATTEND Anesthesiology Pain Medicine
DX: M54.12 Radiculopathy, cervical region (principal); M47.817 Spondylosis without myelopathy or radiculopathy, lumbosacral region; G89.29 Other chronic pain; Z79.899 Other long term (current) drug therapy

== ENCOUNTER → 2020-05-14 | Outpatient (CLI) | payer OTHER ==
[~2020-05-14] VITALS: Ht 160 cm; Wt 141.1 kg
[2020-05-14 13:21] VITALS: BP 133/110
--- NOTE | 2020-05-14 13:28 | NUR ---
Pain Clinic Assessment: 1. History of Osteoarthritis: NECK KNEES BACK History of Rheumatoid Arthritis: Not Applicable 2. Height: 5 ft. 3 in. 160.0 cm. Weight: 311.0 lb. oz. 141.069 kg. Patient's BMI: 55.1 3. Vital Signs: BP: 133/110 Pulse: 137 Resp: 20 Temp: 02 Sat: 100 ECG Mon: 4. Pain Intensity: 9 5. Fall Risk: Dizziness: N Needs help standing or walking: Y Fallen in the last 3 months: N Fall risk comments: 6. Patient on Blood Thinner: None 7. History of Hypertension: Y 8. Opioid Therapy greater than 6 weeks: N Opiate Contract Signed: 9. Risk Assessment Tool Provided: LOW RISK 0/2 10. Functional Assessment Tool: 11. Recreational Drug Use: Never Drug Type: Tobacco Use: Never Smoker Tobacco Type: Amount or Packs/day: How Many Years: Alcohol Use: No Frequency: Quant:
--- NOTE | 2020-05-15 11:51 | HPC ---
[address] [address] PAIN MANAGEMENT CONSULTATION Name: CHRIS THAKUR Room #: REG [facility].#: [id number] Admission: 05/14/20 Attend Phys: Jay Jay Biswas DO Discharge: Date of : 41 Report #: [id number] THIS REPORT FOR: cc: Renzo Dugan MD, Steven A. MD Johnson, James E. DO ~ DATE OF SERVICE: 05/14/2020 REFERRING PHYSICIAN: Renzo Dugan MD CHIEF COMPLAINT: Low back pain. HISTORY OF PRESENT ILLNESS: As you know, the patient is a class 3, morbidly obese severely arthritic 79-year-old female who returns today in followup visit with continued low back pain, right lower extremity pain with paresthesias. The patient states that she has been "crying for the past 5 days due to pain." She has returned today in followup visit to undergo lumbar epidural injection under fluoroscopic guidance. The patient, as you are aware, suffers from chronic cervical radicular symptoms, treated with injection therapy with some benefit. She has been treated in the past for lumbar radicular symptoms, but she states her pain has intensified so greatly that she returns today in followup visit requesting a lumbar epidural injection. She indicates no injury or trauma that may have led to symptom development. She is placing her current pain score at around 9/10. ALLERGIES: No known drug allergies. CURRENT MEDICATIONS: Cyclobenzaprine, Excedrin, gabapentin, Avalide, dicyclomine, metoprolol, allopurinol, oxybutynin, guaifenesin, sertraline, Alphagan, bimatoprost, hydrocodone, meloxicam, topiramate, omeprazole. SOCIAL HISTORY: The patient denies tobacco, alcohol, IV or illicit drug use. She retired in 1995. She is accompanied by a friend, present in room today. IMAGING: No new imaging available. PQRS: The patient has known arthritic changes of the bilateral knees, bilateral hips, lumbar spine and cervical spine. No rheumatoid arthritis. She is placing pain intensity at 9/10. She is a fall risk, but has not had a fall in the last 3 months. She utilizes a roller walker for ambulation. She is not on blood thinners, but is treated for hypertension. She is on chronic opioids and has a low opioid addiction potential based on our assessment tool. Pain impact is 22/70 indicating [id number] interference of daily activities secondary to pain. [address] [address] PAIN MANAGEMENT CONSULTATION Name: CHRIS THAKUR Room #: [facility]#: [id number] Admission: 05/14/20 Attend Phys: Jay Jay Biswas DO Discharge: Date of : 41 Report #: [id number] PHYSICAL EXAMINATION: VITAL SIGNS: Blood pressure 133/110, pulse is 137, respiratory rate 20 and unlabored. The patient is 100% on room air. Height 5 feet 3 inches tall, weight 311 pounds, BMI calculated 55.3. GENERAL: Well-developed, well-nourished, well-hydrated, class 3, severely morbidly obese 79-year-old female appearing stated age. She is placing current pain score 9/10. HEENT: Normocephalic, atraumatic. Pupils equal, round and reactive. NEUROLOGIC: Speech is fluent. The patient deemed a good historian. EXTREMITIES: Show no clubbing, no cyanosis, but lower extremity nonpitting edema is noted. MUSCULOSKELETAL: Palpatory tenderness is noted over the paraspinal musculature of lower lumbar spine once again today. We are unable to elicit any radicular symptoms with seated straight leg raising. Supine straight leg raising is limited significantly by body habitus. Gait is extremely antalgic favoring right lower extremity over left. Stance appears forward flexed. Muscle bulk and tone is equal and symmetrical in lower extremities, though deconditioning is noted. ASSESSMENT: 1. Lumbar radiculopathy. 2. Severe facet arthropathy of the lumbar spine. 3. Lumbosacral spondylosis with radiculopathy. 4. Chronic neck pain. PLAN: 1. The patient returns today in followup visit requesting to undergo lumbar epidural injection under fluoroscopic guidance to address lumbar radiculopathy involving the low back and right lower extremity. The patient and I discussed at length the risks and the benefits of this procedure. These risks include but are not necessarily limited to bleeding, bruising, infection, worsening pain, no relief of pain, also risk of temporary or permanent muscle weakness, temporary or permanent nerve damage, possible paralysis and . The patient states understood and wished to proceed. 2. The patient and I did discuss at length treatment options if epidural injections are ineffective. Unfortunately, given the patient's age and her severe morbid obesity, she is not an optimal candidate for surgical options, though I think ultimately evaluation for this may be necessary. The fact that the patient is experiencing decreasing functionality at home and increasing pain would indicate an underlying lumbar radicular symptom. At present, she has unilateral findings which would be consistent with either neural foraminal stenosis or unilateral disk bulge, though in her history she does describe pain that involve the left lower extremity and thus the central canal stenosis interest the differential. Given her size and her age, central canal stenosis would be easily present, though confirmation would be necessary with either MRI or CT examination. The patient wishes to consider this option, but wishes to [facility] [address] [place] [address] PAIN MANAGEMENT CONSULTATION Name: CHRIS THAKUR Room #: REG [facility].#: [id number] Admission: 05/14/20 Attend Phys: Jay Jay Biswas DO Discharge: Date of : 41 Report #: [id number] undergo epidural injection today. If this is unsuccessful alleviating symptoms, then she would look for a more aggressive treatment approach. The patient was advised this is the third epidural injection that she can receive in 6 months. The next available would be 07/2020. 3. No medication changes made at today's visit. The patient will continue current medical therapy as previously prescribed. 4. We will see the patient back in followup visit in July for next in the series of either cervical epidural injections or lumbar epidural injections as she is limited to 3 epidural injections whether they are done in the cervical region, lumbar region, or a combination in a 6-month period. PROCEDURE NOTE DESCRIPTION OF PROCEDURE: L5-S1 right parasagittal epidural steroid injection under fluoroscopic guidance. After obtaining written consent, the patient was taken back to fluoroscopy suite, placed in prone position with pillow under abdomen to decrease lumbar lordosis. Skin overlying the lumbosacral area was then prepped and draped in aseptic fashion. The L5-S1 vertebral interspace was identified by AP fluoroscopy. Skin and subcutaneous tissue overlying the target site of injection anesthetized with 3 mL of 1% lidocaine. A 20-gauge 6 inches Tuohy needle advanced under fluoroscopic guidance towards the epidural space using a right parasagittal approach. Epidural space identified using loss of resistance to air technique. After negative aspiration for heme or cerebrospinal fluid, 1 mL of Omnipaque injected. A lumbar epidurogram was confirmed using both AP and lateral fluoroscopy. After negative aspiration for heme or cerebrospinal fluid, 5 mL of a solution containing 2 mL 40 mg per mL, 80 mg total triamcinolone along with 3 mL of lidocaine 1% injected slowly. Needle then retracted approximately half way, flushed with 1 mL of 1% lidocaine and then removed. Sterile bandage placed over injection site. No new motor deficits present in the lower extremities following the procedure. The patient tolerated the procedure well, carefully escorted to recovery room in stable condition. No apparent complications. After meeting discharge criteria, the patient discharged home. <ELECTRONICALLY SIGNED> By: Jay Jay Biswas DO 05/15/20 1151 1631 1900 Jay Jay Biswas DO /nt
== END | disposition home or self-care (01) ==
LOC: PAIN 06:43
PROVIDERS: ATTEND Anesthesiology Pain Medicine
DX: M47.27 Other spondylosis with radiculopathy, lumbosacral region (principal); M47.26 Other spondylosis with radiculopathy, lumbar region; G89.29 Other chronic pain; M54.2 Cervicalgia; I10 Essential (primary) hypertension; M19.90 Unspecified osteoarthritis, unspecified site; E66.01 Morbid (severe) obesity due to excess calories; Z98.890 Other specified postprocedural states; Z79.899 Other long term (current) drug therapy; Z79.891 Long term (current) use of opiate analgesic; Z68.43 Body mass index [BMI] 50.0-59.9, adult

== ENCOUNTER → 2020-10-30 | Outpatient (CLI) | payer OTHER ==
[2020-10-30 12:46] VITALS: BP 171/97
--- NOTE | 2020-10-30 12:57 | NUR ---
Pain Clinic Assessment: 1. History of Osteoarthritis: NECK KNEES BACK History of Rheumatoid Arthritis: Not Applicable 2. Height: ft. in. cm. Weight: lb. oz. kg. Patient's BMI: 3. Vital Signs: BP: 171/97 Pulse: 98 Resp: 20 Temp: 02 Sat: 96 ECG Mon: 4. Pain Intensity: 7 5. Fall Risk: Dizziness: N Needs help standing or walking: Y Fallen in the last 3 months: N Fall risk comments: 6. Patient on Blood Thinner: None 7. History of Hypertension: Y 8. Opioid Therapy greater than 6 weeks: N Opiate Contract Signed: 9. Risk Assessment Tool Provided: LOW RISK 0/2 10. Functional Assessment Tool: 11. Recreational Drug Use: Never Drug Type: Tobacco Use: Never Smoker Tobacco Type: Amount or Packs/day: How Many Years: Alcohol Use: No Frequency: Quant:
--- NOTE | 2020-10-30 14:53 | HPC ---
[facility] [address] [place] [address] PAIN MANAGEMENT CONSULTATION Name: CHRIS THAKUR Room #: REG [facility].#: [id number] Admission: 10/30/20 Attend Phys: Jay Jay Biswas DO Discharge: Date of : 41 Report #: [id number] THIS REPORT FOR: cc: Renzo Dugan MD, Steven A. MD Johnson, James E. DO ~ DATE OF SERVICE: 10/30/2020 REFERRING PHYSICIAN: Renzo Dugan MD CHIEF COMPLAINT: Neck pain, bilateral lower extremity pain with paresthesias. HISTORY OF PRESENT ILLNESS: As you know, the patient is a pleasant 80-year-old, class 3, morbidly obese female with longstanding history of cervical radiculopathy and lumbar radiculopathy. She returns today in followup visit stating a pain score of 7/10, reporting mainly pain in the neck and upper extremities. She describes numbness and tingling radiating into the hands bilaterally. She denies any injury or trauma. She returns today in followup visit to undergo cervical epidural injection under fluoroscopic guidance to address recurrent cervical radiculopathy. The patient denies injury or trauma or any changes in medical history since her last visit. She has not undergone and now planning to undergo COVID-19 injections at this juncture. ALLERGIES: No known drug allergies. CURRENT MEDICATIONS: Cyclobenzaprine, Excedrin, gabapentin, Avalide, dicyclomine, metoprolol, allopurinol, oxybutynin, guaifenesin, sertraline, Alphagan, bimatoprost, hydrocodone, meloxicam, topiramate, omeprazole. SOCIAL HISTORY: The patient denies tobacco, alcohol, IV or illicit drug use. She is retired, retiring in 1995. Unaccompanied today. IMAGING: No new imaging available. PQRS: The patient has known arthritic changes of the cervical spine, lumbar spine, bilateral knees, bilateral hips. No rheumatoid arthritis. She is placing pain intensity today at 7/10. She is a fall risk, but has not had a fall in last 3 months. She utilizes a wheelchair while at the hospital, a roller walker at home. She is not on blood thinners, but is treated for hypertension. She is not on chronic opioids, has a low opiate addiction potential based on our assessment tool. Pain impact is 22/70, [id number]-[id number] interference of daily activities secondary to pain. PHYSICAL EXAMINATION: VITAL SIGNS: Blood pressure 171/97, pulse is 98, respiratory rate 20 and mildly labored, O2 sat 96%. Current pain is 7/10. [place] [address] PAIN MANAGEMENT CONSULTATION Name: CHRIS THAKUR Room #: REG [facility]#: [id number] Admission: 10/30/20 Attend Phys: Jay Jay Biswas DO Discharge: Date of : 41 Report #: [id number] HEENT: Normocephalic, atraumatic. Pupils equal, round, and responsive. Extraocular muscles are intact. The patient is wearing a mask in compliance with COVID-19 regulations. EXTREMITIES: Show no clubbing, no cyanosis. There is 2+ nonpitting lower extremity edema noted. MUSCULOSKELETAL: Palpatory tenderness remains over the paraspinal musculature of cervical spine. No spinous process tenderness. Cervical provocation testing is met with increasing pain. There is crepitus noted with movement in rotation, and lateral flexion. Spurling's test is positive. Upper extremity strength is symmetrical, but deconditioned. Muscle strength 5/5. ASSESSMENT: 1. Cervical radiculopathy. 2. Cervical facet arthropathy. 3. Chronic intractable pain. PLAN: 1. The patient returns today in followup visit to address cervical radicular symptoms that have reoccurred. She reports good efficacy with previous cervical epidural injection giving up to 80% improvement in overall pain. Unfortunately, her symptoms have begun to return. No inciting injury or trauma. She has been advised the risks and benefits of the next in the series of cervical epidural injections. These risks include but are not necessarily limited to bleeding, bruising, infection, worsening pain, no relief of pain, also risk of temporary or permanent muscle weakness, temporary or permanent nerve damage, possible paralysis and . The patient states understood and wished to proceed. 2. No medication changes made at today's visit. The patient will continue current medical therapy as prior prescribed. 3. We will see the patient back in followup visit on an as needed basis to address either recurrent cervical radicular symptoms or to discuss epidural injections for lumbar radiculopathy. PROCEDURE NOTE PROCEDURE: Cervical epidural steroid injection under fluoroscopic guidance. DESCRIPTION OF PROCEDURE: After obtaining written consent, the patient was taken back to fluoroscopy suite, placed in a prone position with separate pillows under chest and forehead to decrease cervical lordosis. Skin overlying cervical area then prepped and draped in aseptic fashion. The cervical interspaces were identified by AP fluoroscopy. Skin and subcutaneous tissue overlying target site injection anesthetized with 3 mL of 1% lidocaine. A 20-gauge 4-1/2 inch Tuohy needle advanced under fluoroscopic guidance towards the epidural space using midline approach. Epidural space identified using loss [address] [address] PAIN MANAGEMENT CONSULTATION Name: CRHIS THAUKR Room #: [facility]#: [id number] Admission: 10/30/20 Attend Phys: Jay Jay Biswas DO Discharge: Date of : 41 Report #: [id number] of resistance to air technique. After negative aspiration for heme or cerebrospinal fluid, 1 mL of Omnipaque injected. A cervical epidurogram confirmed using both AP and oblique fluoroscopy. After negative aspiration for heme or cerebrospinal fluid, 5 mL of a solution containing 2 mL 40 mg per mL, 80 mg total triamcinolone along with 3 mL of lidocaine 1% injected slowly. Needle retracted fdc, flushed with 1 mL of 1% lidocaine and removed. Sterile bandage placed over injection site. No new motor deficits present in the upper extremities following procedure. The patient tolerated procedure well, carefully escorted to recovery room in stable condition. No apparent complications. After meeting discharge criteria, the patient discharged home. <ELECTRONICALLY SIGNED> By: Jay Jay Biswas DO 10/30/20 1453 1330 1415 Jay Jay Biswas DO /nt
== END | disposition home or self-care (01) ==
LOC: PAIN 06:45
PROVIDERS: ATTEND Anesthesiology Pain Medicine
DX: M47.22 Other spondylosis with radiculopathy, cervical region (principal); G89.29 Other chronic pain; I10 Essential (primary) hypertension; M19.90 Unspecified osteoarthritis, unspecified site; Z98.890 Other specified postprocedural states; Z79.899 Other long term (current) drug therapy

== ENCOUNTER → 2020-11-20 | Outpatient (CLI) | payer OTHER ==
[~2020-11-20] VITALS: Ht 160 cm; Wt 139.7 kg
[2020-11-20 10:42] VITALS: BP 148/102
--- NOTE | 2020-11-20 10:51 | NUR ---
Pain Clinic Assessment: 1. History of Osteoarthritis: NECK KNEES BACK History of Rheumatoid Arthritis: Not Applicable 2. Height: 5 ft. 3 in. 160.0 cm. Weight: 308.0 lb. oz. 139.708 kg. Patient's BMI: 54.6 3. Vital Signs: BP: 148/102 Pulse: 94 Resp: 18 Temp: 02 Sat: 97 ECG Mon: 4. Pain Intensity: 8 5. Fall Risk: Dizziness: N Needs help standing or walking: Y Fallen in the last 3 months: N Fall risk comments: 6. Patient on Blood Thinner: None 7. History of Hypertension: Y 8. Opioid Therapy greater than 6 weeks: N Opiate Contract Signed: 9. Risk Assessment Tool Provided: LOW RISK 0/2 10. Functional Assessment Tool: 11. Recreational Drug Use: Never Drug Type: Tobacco Use: Never Smoker Tobacco Type: Amount or Packs/day: How Many Years: Alcohol Use: No Frequency: Quant:
--- NOTE | 2020-11-22 14:52 | HPC ---
[address] [address] PAIN MANAGEMENT CONSULTATION Name: CHRIS THAKUR Room #: REG [facility].#: [id number] Admission: 11/20/20 Attend Phys: Jay Jay Biswas DO Discharge: Date of : 42 Report #: [id number] THIS REPORT FOR: cc: Renzo Dugan MD, Steven A. MD Johnson, James E. DO ~ DATE OF SERVICE: 11/20/2020 REFERRING PHYSICIAN: Renzo Dugan MD CHIEF COMPLAINT: Neck pain, bilateral upper extremity pain with paresthesias. HISTORY OF PRESENT ILLNESS: As you know, the patient is a 80-year-old female with longstanding history of chronic cervical radiculopathy, chronic lumbar radiculopathy. She returns today in followup visit requesting to undergo a cervical epidural injection under fluoroscopic guidance. The patient is placing her current pain score at 8/10. She states she has suffered no injury or trauma that may have led to symptom development. She has been at home, crying over the past couple of days due to increasing pain issues. She has not sought evaluation from a neurosurgical standpoint and has been seeing improvement in symptoms with cervical injections in the past and is hopeful to undergo next in the series today to build on success of previous intervention. She indicates pain improvement with the previous injection of 70%. She returns today in followup visit to undergo the next in the series of cervical epidural injections in hopes of further improvement in analgesia. ALLERGIES: No known drug allergies. CURRENT MEDICATIONS: See chart. SOCIAL HISTORY: The patient denies tobacco, alcohol, IV or illicit drug use. She is retired, retired in 1985. Unaccompanied today. IMAGING: No new imaging available. PQRS: The patient has known arthritic changes of the cervical spine, lumbar spine, bilateral knees and bilateral hips. No rheumatoid arthritis is diagnosed. She is placing current pain score at 8/10. She is at fall risk, but has not had a fall in last 3 months. She utilizes ambulatory devices such as a roller walkers and wheelchair. She is treated for hypertension, but takes no blood thinners. She is not on any chronic opioids, has a low opioid addiction potential based on assessment tool. Pain impact is 22/70. [id number] interference of daily activities secondary to pain. PHYSICAL EXAMINATION: VITAL SIGNS: Blood pressure 148/102, pulse is 94, respiratory rate [address] [address] PAIN MANAGEMENT CONSULTATION Name: CHRIS THAKUR Room #: REG [facility]#: [id number] Admission: 11/20/20 Attend Phys: Jay Jay Biswas DO Discharge: Date of : 41 Report #: [id number] unlabored. The patient is 97% on room air. Height 5 feet 3 inches tall, weight 308 pounds, BMI calculated 54.6. GENERAL: Well-developed, well-nourished, well-hydrated, severely morbidly obese 80-year-old female appearing her stated age, pain is rated today at 8/10. HEENT: Normocephalic and atraumatic. Pupils are responsive. The patient's extraocular muscles are intact. She is wearing a mask in compliance with COVID-19 regulations. EXTREMITIES: Show no clubbing, no cyanosis. There is once again 2+ nonpitting lower extremity edema bilaterally. MUSCULOSKELETAL: Upper extremity strength is symmetrical, but deconditioned. Muscle bulk and tone is symmetrical in comparing upper extremities. Spurling's test is positive. She remains intact to light touch from C5 through T1 dermatomes. Deep tendon reflexes are symmetrical, but diminished bilaterally. ASSESSMENT: 1. Cervical radiculopathy. 2. Cervical facet arthropathy. 3. Chronic intractable pain. PLAN: 1. The patient returns today in followup visit requesting to undergo cervical epidural injection under fluoroscopic guidance. The most recent epidural injection gave 70% improvement in overall pain for which she reports she continues to experience response. She returns today in followup visit to undergo next in the series of cervical epidural injections to address her residual 8/10 pain. The patient has been advised risks and benefits of the procedure, states understood and wished to proceed. 2. No medication changes made at today's visit. The patient will continue current medical therapy as prior prescribed. 3. We plan to see the patient back in followup visit on an as needed basis for the next in the series of cervical epidural injections. I did advise the patient that this is the second in the series of epidural injections in the 6 months. We have 1 remaining cervical epidural injection until 05/02/2021. DESCRIPTION OF PROCEDURE: C7-T1 cervical epidural steroid injection under fluoroscopic guidance. After obtaining written consent, the patient was taken back to fluoroscopy suite, placed in prone position with pillow under chest and forehead to decrease cervical lordosis. Skin overlying cervical area then prepped and draped in aseptic fashion. C7-T1 cervical interspace was identified by AP fluoroscopy. Skin and subcutaneous tissue overlying target site injection anesthetized with 3 mL of 1% lidocaine. A 20-gauge 4-1/2 inch Tuohy needle advanced under fluoroscopic guidance towards the epidural space using a midline approach. Epidural space identified using [address] [address] PAIN MANAGEMENT CONSULTATION Name: CHRIS THAKUR Room #: [facility]#: [id number] Admission: 11/20/20 Attend Phys: Jay Jay Biswas DO Discharge: Date of : 41 Report #: [id number] loss of resistance to air technique. After negative aspiration for heme or cerebrospinal fluid, 1 mL of Omnipaque injected. A cervical epidurogram was confirmed using both AP and lateral fluoroscopy. After negative aspiration for heme or cerebrospinal fluid, 5 mL of a solution containing 2 mL 40 mg per mL, 80 mg total triamcinolone along with 3 mL of lidocaine 1% injected slowly. Needle retracted usp, flushed with 1 mL of 1% lidocaine and removed. Sterile bandage placed over injection site. No new motor deficits present in the upper extremities following procedure. The patient tolerated procedure well, carefully escorted to recovery room in stable condition. No apparent complications. After meeting discharge criteria, the patient discharged home. <ELECTRONICALLY SIGNED> By: Jay Jay Biswas DO 11/22/20 1452 [id number] [id number] Jay Jay Biswas DO /nt
== END | disposition home or self-care (01) ==
LOC: PAIN 06:54
PROVIDERS: ATTEND Anesthesiology Pain Medicine
DX: M47.22 Other spondylosis with radiculopathy, cervical region (principal); G89.29 Other chronic pain; I10 Essential (primary) hypertension; M19.90 Unspecified osteoarthritis, unspecified site; Z98.890 Other specified postprocedural states; Z79.899 Other long term (current) drug therapy

== ENCOUNTER → 2020-12-10 | Outpatient (CLI) | payer OTHER ==
[~2020-12-10] VITALS: Ht 160 cm; Wt 139.7 kg
[~2020-12-10] MED LIST changes: +TRAMADOL 50 MG50 MG PO
[2020-12-10 09:52] VITALS: BP 177/106
--- NOTE | 2020-12-10 10:16 | NUR ---
Pain Clinic Assessment: 1. History of Osteoarthritis: NECK KNEES BACK History of Rheumatoid Arthritis: Not Applicable 2. Height: 5 ft. 3 in. 160.0 cm. Weight: 308.0 lb. oz. 139.708 kg. Patient's BMI: 54.6 3. Vital Signs: BP: 177/106 Pulse: 106 Resp: 20 Temp: 02 Sat: 100 ECG Mon: 4. Pain Intensity: 9 5. Fall Risk: Dizziness: N Needs help standing or walking: Y Fallen in the last 3 months: N Fall risk comments: 6. Patient on Blood Thinner: None 7. History of Hypertension: Y 8. Opioid Therapy greater than 6 weeks: N Opiate Contract Signed: 9. Risk Assessment Tool Provided: LOW RISK 0 10. Functional Assessment Tool: 11. Recreational Drug Use: Never Drug Type: Tobacco Use: Never Smoker Tobacco Type: Amount or Packs/day: How Many Years: Alcohol Use: No Frequency: Quant:
--- NOTE | 2020-12-11 07:42 | HPC ---
[facility] [address] [address] PAIN MANAGEMENT CONSULTATION Name: CHRIS THAKUR Room #: REG [facility]one.#: [id number] Admission: 12/10/20 Attend Phys: Jay Jay Biswas DO Discharge: Date of : 41 Report #: [id number] THIS REPORT FOR: cc: Renzo Dugan MD, Steven A. MD Johnson, James E. DO ~ DATE OF SERVICE: 12/10/2020 CHIEF COMPLAINT: Low back pain, bilateral buttock and posterolateral thigh pain. HISTORY OF PRESENT ILLNESS: As you know, the patient is a 80-year-old female with longstanding history of chronic cervical radiculopathy and chronic lumbar radiculopathy. Recently, we have been treating the patient's cervical spine due to progressively worsening central canal stenosis. She states her pain in that area has improved to some degree. She reports that the cervical epidural injection provided at our last visit gave 75% improvement in symptoms. Unfortunately, the patient's low back and area has begun to become more problematic. She states she can barely get out of bed to even move to the bathroom. She is placing pain score at 9/10. She returns today in followup visit requesting treatment for lumbar radiculopathy. The patient denies any injury or trauma that may have led to symptom reoccurrence. She has had changes in her medication management with addition of tramadol for which the patient states she has received no benefit. She is continuing to take 60 morphine equivalence of hydrocodone per day and despite this elevated dosing of medications, noting no improvement. She returns today in followup visit to discuss treatment options for lumbar radiculopathy. ALLERGIES: No known drug allergies. CURRENT MEDICATIONS: Tramadol 50 mg 3 times a day, cyclobenzaprine 10 mg 3 times a day, Excedrin caplet 1 tab p.r.n., gabapentin 100 mg 3 times a day, irbesartan/hydrochlorothiazide 300/12.5 mg once a day, dicyclomine 20 mg once a day, metoprolol 25 mg once a day, allopurinol 100 mg once a day, oxybutynin 5 mg once a day, Mucinex 600 mg every 12 hours, cetirizine 10 mg per day, Alphagan 1 drop each eye per day, Trusopt 1 drop each eye per day, bimatoprost 1 drop each eye per day, hydrocodone/acetaminophen 10/325 one tab every 4 hours p.r.n. pain, meloxicam 15 mg once a day, topiramate 50 mg b.i.d., omeprazole 40 mg b.i.d. SOCIAL HISTORY: The patient denies tobacco, alcohol or IV illicit drug use. She is retired, retired in 1985. Unaccompanied today. IMAGING: No new imaging available. PQRS: The patient has known arthritic changes of the cervical spine, lumbar spine, bilateral knees, bilateral hips. No rheumatoid [place] [address] PAIN MANAGEMENT CONSULTATION Name: CHRIS THAKUR Room #: [facility]#: [id number] Admission: 12/10/20 Attend Phys: Jay Jay Biswas DO Discharge: Date of : 41 Report #: [id number] placing current pain score 9/10. She is a fall risk, but has not had a fall in last 3 months. She is not on blood thinners, but is treated for hypertension. She is on chronic opioids with a low risk of opioid addiction. Pain impact 22/70, moderate interference of daily activities secondary to pain. PHYSICAL EXAMINATION: VITAL SIGNS: Blood pressure 177/106, pulse 106, respiratory rate 20 and unlabored. The patient is 100% on room air. Height 5 feet 3 inches tall, weight 308 pounds, BMI calculated 54.6. GENERAL: Well-developed, well-nourished, well-hydrated, severely morbidly obese, placing current pain score 9/10. HEENT: Normocephalic, atraumatic. Pupils are round. The patient is wearing a mask in compliance with COVID-19 regulations. EXTREMITIES: Show no clubbing, no cyanosis. There is 1+ nonpitting lower extremity edema. MUSCULOSKELETAL: Palpatory tenderness is noted over the paraspinal musculature of lower lumbar spine. No spinous process tenderness. Gait is extremely antalgic, stance is forward flexed with loss of lordotic curvature. Seated straight leg raising is negative. Supine straight leg raising is unable to be performed due to body habitus. Lumbar provocation testing met with increasing pain with all maneuvers. ASSESSMENT: 1. Chronic lumbar radiculopathy. 2. Lumbosacral spondylosis with radiculopathy. 3. Facet arthropathy of the lumbar spine. 4. Class 3 morbid obesity. 5. Chronic intractable pain. PLAN: 1. Based on today's physical exam and the history the patient has provided, the description the patient uses in regards to pain as well as location of symptoms, it would appear the patient is suffering from not only a lumbar radiculopathy, but also progressively worsening facet arthropathy of the lumbar spine. The patient's weight is a significant contributor to the patient's low back symptoms and pain. This is obvious with the findings on physical exam today as well as the factors that exacerbate her pain. It would appear the patient is suffering from 2 different pain generators, one is the facet arthropathy of the lumbar spine exacerbated by her excessive weight, the other is a lumbar radiculopathy. We have discussed with the patient the treatment options we have available. Following was discussed with the patient today. We discussed physical therapy, stretching exercises, and stretching techniques along with a concerted effort at weight loss. We discussed medication suggestions to help manage her symptoms. She is on a high dose of opioid medication, taking 60 morphine equivalence of hydrocodone per day along with the [facility] [address] [place] [address] PAIN MANAGEMENT CONSULTATION Name: CHRIS THAKUR Juan Daniel [facility] [id number] Admission: 12/10/20 Attend Phys: Jay Jay Biswas DO Discharge: Date of : 41 Report #: [id number] new addition of tramadol for which she is taking up to 6 tablets a day. Even with this combination of medication, which places at near if not higher than the CDC's recommended no greater than 90 morphine equivalents a day. She is still not experiencing much in the way of analgesic benefit. Further adjustments could be addressed nonopioid related. We discussed lumbar epidural injection under fluoroscopic guidance as a way to treat her symptoms and finally surgical options, which may be ultimately necessary. After reviewing risks and benefits of all the proposed treatment options, the patient chose to move forward with a lumbar epidural injection under fluoroscopic guidance. 2. The patient was advised risks and benefits of a lumbar epidural injection. These risks include but are not necessarily limited to bleeding, bruising, infection, worsening pain, no relief of pain, also risk of temporary or permanent muscle weakness, temporary or permanent nerve damage, possible paralysis and . The patient states understood and wished to proceed. 3. No medication changes made at today's visit. The patient will continue current medical therapy as prior prescribed. 4. We plan to see the patient back in followup visit on an as needed basis. We have completed 3 shots in a 6-month period, which we will have to carry through 05/02/2021, will be the next available injection, whether it will be cervical or lumbar. She has completed all 3 of the epidural injections in the last month and a half. We have advised the patient of this today and she chose to go ahead and undergo the lumbar epidural injection, even though she will have to wait until April to have the next in the series of injections whether addressing cervical radiculopathy or lumbar radiculopathy. PROCEDURE NOTE DESCRIPTION OF PROCEDURE: L5-S1 interlaminar epidural steroid injection under fluoroscopic guidance. After obtaining written consent, the patient was taken back to fluoroscopy suite, placed in prone position with pillow under abdomen to decrease lumbar lordosis. Skin overlying lumbosacral area prepped and draped in aseptic fashion. The L5-S1 vertebral interspace identified by AP fluoroscopy. Skin and subcutaneous tissue overlying target site injection anesthetized with 3 mL of 1% lidocaine. A 20-gauge 4-1/2 inch Tuohy needle advanced under fluoroscopic guidance towards the epidural space using a midline approach. Epidural space identified using loss of resistance to air technique. After negative aspiration for heme or cerebrospinal fluid, 1 mL of Omnipaque injected. A lumbar epidurogram was confirmed using both AP and lateral fluoroscopy. After negative aspiration for heme or cerebrospinal fluid, 5 mL of a solution containing 2 mL 40 mg per mL, 80 mg total triamcinolone along with 3 mL of lidocaine 1% injected slowly. Needle retracted nursing home, flushed with 1 mL of 1% lidocaine and removed. Sterile bandage placed over injection site. No new motor deficits present in the lower [facility] [address] [place] [address] PAIN MANAGEMENT CONSULTATION Name: CHRIS THAKUR Room #: REG [facility]#: [id number] Admission: 12/10/20 Attend Phys: Jay Jay Biswas DO Discharge: Date of : 41 Report #: [id number] extremities following procedure. The patient tolerated procedure well, carefully escorted to the recovery room in stable condition. No apparent complications. After meeting discharge criteria, the patient discharged home. <ELECTRONICALLY SIGNED> By: Jay Jay Biswas DO 12/11/20 0742 1236 30 Jay Jay Biswas DO /nt
== END | disposition home or self-care (01) ==
LOC: PAIN 06:55
PROVIDERS: ATTEND Anesthesiology Pain Medicine
DX: M47.26 Other spondylosis with radiculopathy, lumbar region (principal); M47.27 Other spondylosis with radiculopathy, lumbosacral region; G89.29 Other chronic pain; E66.01 Morbid (severe) obesity due to excess calories; I10 Essential (primary) hypertension; M19.90 Unspecified osteoarthritis, unspecified site; Z98.890 Other specified postprocedural states; Z79.899 Other long term (current) drug therapy; Z68.43 Body mass index [BMI] 50.0-59.9, adult

== ENCOUNTER → 2021-07-08 | Outpatient (CLI) | payer OTHER ==
[~2021-07-08] VITALS: Ht 167.6 cm; Wt 127.9 kg
[~2021-07-08] MED LIST changes: +TOPROL XL50 MG PO
[2021-07-08 12:46] VITALS: BP 146/85
--- NOTE | 2021-07-08 12:52 | NUR ---
Pain Clinic Assessment: 1. History of Osteoarthritis: NECK KNEES BACK History of Rheumatoid Arthritis: Not Applicable 2. Height: 5 ft. 6 in. 167.6 cm. Weight: 282.0 lb. oz. 127.915 kg. Patient's BMI: 45.5 3. Vital Signs: BP: 146/85 Pulse: 94 Resp: 18 Temp: 02 Sat: 96 ECG Mon: 4. Pain Intensity: 10 5. Fall Risk: Dizziness: N Needs help standing or walking: N Fallen in the last 3 months: N Fall risk comments: 6. Patient on Blood Thinner: None 7. History of Hypertension: Y 8. Opioid Therapy greater than 6 weeks: Y Opiate Contract Signed: 9. Risk Assessment Tool Provided: LOW RISK 0 10. Functional Assessment Tool: 11. Recreational Drug Use: Never Drug Type: Tobacco Use: Never Smoker Tobacco Type: Amount or Packs/day: How Many Years: Alcohol Use: No Frequency: Quant:
--- NOTE | 2021-07-09 08:39 | HPC ---
[address] [address] PAIN MANAGEMENT CONSULTATION Name: CHRIS THAKUR Room #: REG [facility].#: [id number] Admission: 07/08/21 Attend Phys: Jay Jay Biswas DO Discharge: Date of : 41 Report #: [id number] THIS REPORT FOR: cc: Renzo Dugan MD,Jay Jay Olguin MD, DO ~ cc: Renzo Dugan M.D. DATE OF SERVICE: 07/08/2021 REFERRING PHYSICIAN: Dr. Renzo Dugan. CHIEF COMPLAINT: Low back pain, bilateral buttock and posterolateral thigh pain. HISTORY OF PRESENT ILLNESS: As you know, the patient is a class 3 morbidly obese 80-year-old female with longstanding history of chronic neck pain due to cervical radiculopathy and chronic low back pain due to lumbar radiculopathy. She returns today in followup visit, describing pain that has debilitated her over the past couple of weeks. She is placing a pain score of 10/10 involving the low back, bilateral lower extremities. She has returned requesting a lumbar epidural injection under fluoroscopic guidance. The patient denies any changes in her daily activity that may have led to symptoms. There has been no new injury or trauma. She has undergone injections in the past for which she states improvement in symptoms lasting for months. The most recent injection was provided to the patient in November where she underwent a lumbar epidural injection with benefits reaching until just recently where she has had recurrence of symptoms. She returns today for a lumbar epidural injection under fluoroscopic guidance. ALLERGIES: No known drug allergies. CURRENT MEDICATIONS: See extensive list in chart. SOCIAL HISTORY: The patient denies tobacco, alcohol, IV or illicit drug use. She retired in 1985. She is accompanied by a family friend present in room today. IMAGING: No new imaging available. PQRS: The patient has known arthritic changes of the cervical spine, lumbar spine, bilateral hips, bilateral knees and ankles. No rheumatoid arthritis. She is placing current pain score of 10/10. She is a fall risk, but has not had a fall in the last 3 months. She is not on blood thinners, but is treated for hypertension. She is on chronic opioids and based on our assessment tool, has a low opioid addiction potential. Pain impact is 22/70, mild to moderate interference of daily activities secondary to pain. [address] [address] PAIN MANAGEMENT CONSULTATION Name: CHRIS THAKUR Room #: REG [facility]#: [id number] Admission: 07/08/21 Attend Phys: Jay Jay Biswas DO Discharge: Date of : 41 Report #: [id number] PHYSICAL EXAMINATION: VITAL SIGNS: Blood pressure 146/85, pulse 94, respiratory rate 18 and unlabored. The patient is 96% on room air. Height 5 feet 6 inches tall, weight 282.0 pounds, BMI calculated 45.5. GENERAL: Well-developed, well-nourished, well-hydrated, severely morbidly obese 80-year-old female appearing her stated age. Pain is rated today 10/10. HEENT: Normocephalic, atraumatic. Pupils are round. She is wearing a mask in compliance with [facility] regulations and hospital policy. EXTREMITIES: Show no clubbing, no cyanosis, 1+ nonpitting lower extremity edema noted again today. MUSCULOSKELETAL: Palpatory tenderness is noted over the paraspinal musculature of lower lumbar spine. Seated straight leg raising is negative. Supine straight leg raising is unable to be performed due to body habitus. Lumbar provocation testing is met with increasing pain with all maneuvers. Gait is extremely antalgic. ASSESSMENT: 1. Chronic lumbar radiculopathy. 2. Lumbosacral spondylosis with radiculopathy. 3. Facet arthropathy of lumbar spine. 4. Class 3 morbid obesity. 5. Chronic intractable pain. PLAN: 1. The patient returns today in followup visit requesting to undergo lumbar epidural injection under fluoroscopic guidance. She has done very well with previous epidural injection noticing an improvement in symptoms for almost 7 months. Unfortunately, her symptoms have recurred. She returns today in followup visit requesting a lumbar epidural injection to be performed. I advised the patient of the risks and benefits. She states she understood and wished to proceed. 2. No medication changes made at today's visit. The patient will continue current medical therapy as prior prescribed. 3. We will see the patient back in followup visit for the next in the series of epidural injections on an as needed basis. I am hopeful the patient will see good and prolonged benefit with today's epidural injection. PROCEDURE NOTE DESCRIPTION OF PROCEDURE: L5-S1 interlaminar epidural steroid injection under fluoroscopic guidance. After obtaining written consent, the patient was taken back to fluoroscopy suite, placed in prone position with pillow under abdomen to decrease lumbar lordosis. Skin overlying lumbosacral area then prepped and draped in aseptic [address] [address] PAIN MANAGEMENT CONSULTATION Name: CHRIS THAKUR Room #: [facility]#: [id number] Admission: 07/08/21 Attend Phys: Jay Jay Biswas DO Discharge: Date of : 41 Report #: [id number] fashion. The L5-S1 vertebral interspace identified by AP fluoroscopy. Skin and subcutaneous tissue overlying target site injection anesthetized with 3 mL 1% lidocaine. A 20-gauge 4-1/2 inch Tuohy needle advanced under fluoroscopic guidance towards the epidural space using a paramedian approach. The epidural space identified using loss of resistance to air technique. After negative aspiration for heme or cerebrospinal fluid, 1 mL of Omnipaque injected. Lumbar epidurogram confirmed using both AP and lateral fluoroscopy. After negative aspiration for heme or cerebrospinal fluid, 5 mL solution containing 2 mL 40 mg per mL 80 mg total triamcinolone along with 3 mL of lidocaine 1% injected slowly. Needle retracted group home, flushed with 1 mL of 1% lidocaine, then removed. Sterile bandage placed over injection site. There were no new motor deficits present in the lower extremities following procedure. The patient tolerated the procedure well, carefully escorted to recovery room in stable condition. No apparent complications. After meeting discharge criteria, the patient discharged home. <ELECTRONICALLY SIGNED> By: Jay Jay Biswas DO 07/09/21 0839 [id number] [id number] Jay Jay Biswas DO /nt
== END | disposition home or self-care (01) ==
LOC: PAIN 07:26
PROVIDERS: ATTEND Anesthesiology Pain Medicine
DX: M47.27 Other spondylosis with radiculopathy, lumbosacral region (principal); M47.26 Other spondylosis with radiculopathy, lumbar region; G89.29 Other chronic pain; I10 Essential (primary) hypertension; M19.90 Unspecified osteoarthritis, unspecified site; Z98.890 Other specified postprocedural states; Z79.899 Other long term (current) drug therapy; Z79.891 Long term (current) use of opiate analgesic; Z68.42 Body mass index [BMI] 45.0-49.9, adult